=== PATIENT | female | born 1985 | race Caucasian/White ===

== ENCOUNTER 2019-02-10 19:50 | Emergency (ER) | payer SELFPAY | END 2019-02-10 21:09 | disposition home or self-care (01) | LOC: ERS 19:50 | DX: B02.9 Zoster without complications (principal); F17.210 Nicotine dependence, cigarettes, uncomplicated ==

== ENCOUNTER 2020-05-07 09:34 | Emergency (ER) | payer SELFPAY | END 2020-05-07 10:05 | disposition home or self-care (01) | LOC: ERS 09:34 | DX: N64.4 Mastodynia (principal); F17.210 Nicotine dependence, cigarettes, uncomplicated | CPT/HCPCS: 99283 ==

== ENCOUNTER 2020-05-09 08:15 | Inpatient (IN) | payer OTHER, SELFPAY ==
[2020-05-09] MEDS ORDERED: Ketorolac Tromethamine 30 MG/ML VIAL ONE (08:58)
[2020-05-09] MEDS ORDERED: VANCOMYCIN 2 GRAM/400 ML BAG 2 GM in Premix Bag 1 BAG IVPB SCH (09:15)
[2020-05-09 09:36] LABS: #Basophils 0.1 thou/uL (0.0-0.2); #Eosinphils 0.1 thou/uL (0.0-0.7); #Lymphocytes 1.6 thou/uL (1.20-3.40); #Monocytes 1.3 thou/uL (0.11-0.59); #Neutrophils 9.7 thou/uL (1.40-6.50); %Basophils 0.5 % (0.0-1.0); %Lymphocytes 12.5 % (21.0-51.0); %Monocytes 10.2 % (0.0-10.0); %Neutrophils 75.9 % (42.0-75.0); Mean Corpuscular Hemoglobin 29.8 pg (27.0-31.0); Mean Corpuscular Volume 87.7 fL (78.0-98.0); Mean Platelet Volume 7.6 fL (7.4-10.4); Platelet Count 316 thou/uL (130-400); RBC Distribution Width 10.9 % (11.5-14.5); Red Blood Cell (RBC) Count 4.37 mill/uL (4.20-5.40); White Blood Cell (WBC) Count 12.8 thou/uL (4.8-10.8)
[2020-05-09 09:43] LABS: BHCG - Serum Negative (NEGATIVE); Pregs Control Background? CLEAR/WHITE (CLR/WHITE); Pregs Control Bar Appear? YES (CONTROL BAR)
[2020-05-09 09:51] LABS: ALT (SGPT) 41 U/L (8-55); AST (SGOT) 22 U/L (5-34); Albumin 3.8 g/dL (3.5-5.0); Alkaline Phosphatase 73 U/L (40-110); Anion Gap 14 mmol/L (10-20); BUN (Urea Nitrogen) 9 mg/dL (7.0-18.7); Bilirubin, Total 0.8 mg/dL (0.2-1.2); Calc. Creatinine Clearance 0 mL/min (70-130); Calcium 8.7 mg/dL (7.8-10.44); Carbon Dioxide 24 mmol/L (22-29); Chloride 103 mmol/L (98-107); Globulin 3.4 g/dL (2.4-3.5); Glucose 93 mg/dL (70-105); Potassium 3.7 mmol/L (3.5-5.1); Protein, Total 7.2 g/dL (6.0-8.3); Sodium 137 mmol/L (136-145)
[2020-05-09] MEDS ORDERED: Acetaminophen 650 MG Suppository PR PRN (11:03)
--- NOTE | 2020-05-09 11:13 | PDOC.HHP ---
Hospitalist HPI L breast redness, dog scratch History of Present Illness: Ms. Kraus is a 34F with a past medical history of kidney stones who reports to the emergency room for left breast redness and swelling after a dog scratch. Patient reports that last week her dog scratched her breast in 2 places on the outer portion and also to the nipple. Patient reports it did break the skin, but the scratch itself healed well. A few days later she noticed redness and swelling surrounding her breast and presented to the emergency room. She was initially discharged on Bactrim and Keflex, however she had worsening fevers chills and spreading of the erythema outside the original outline. She is not lactating or breast-feeding at this time. She notes a small amount of yellow nipple discharge. No bleeding. Patient denies family history of breast cancer. In emergency room initial vital signs 119/86, 100, 16, 99.2, 97% on room air. WBC 12.8, H/H 13.0/38.3, platelets 316. Lactic acid 1.1. BUN/CR 9/0.83, sodium 137, potassium 3.7, glucose 93. Patient received vancomycin, and 1 L of normal saline. Allergies/Adverse Reactions: Allergy/AdvReac Type Severity Reaction Status Date / Time No Known Allergies Allergy Unverified 05/09/20 09:02 Comments: No home medications Past History: PMHx: Kidney stones PSHx: Renal stent FHx: Denies family history of breast cancer Social: Lives at home with family, no tobacco alcohol or drug use. Hospitalist HPI BRENT Constitutional: reports: fever, chills, malaise. denies: sweats, weakness Eyes: denies: pain, vision change, conjunctivae inflammation, eyelid inflammation, redness, other ENT: denies: ear pain, ear discharge, nose pain, nose discharge, nose congestion, mouth pain, mouth swelling, throat pain, throat swelling, other Respiratory: denies: cough, dry, shortness of breath, hemoptysis, SOB with excertion, pleuritic pain, sputum, wheezing, other Cardiovascular: denies: chest pain, palpitations, orthopnea, paroxysmal noc. dyspnea, edema, light headedness, other Gastrointestinal: denies: nausea, vomiting, abdominal pain, diarrhea, constipation, melena, hematochezia, other Genitourinary: denies: dysuria, frequency, incontinence, hematuria, retention, other Musculoskeletal: reports: other (Pain to left breast). denies: neck pain, shoulder pain, arm pain, back pain, hand pain, leg pain, foot pain Skin: reports: rash Neurological: denies: weakness, numbness, incoordination, change in speech, confusion, seizures, other Hospitalist Exam General Appearance: NAD, awake alert Eye: PERRL, anicteric sclera ENT: normocephalic atraumatic, no oropharyngeal lesions, moist mucosa Neck: supple, symmetric, no JVD, no thyromegaly, no lymphadenopathy, no carotid bruit Heart: RRR, no murmur, no gallops, no rubs, normal peripheral pulses Respiratory: CTAB, no wheezes, no rales, no ronchi, normal chest expansion, no tachypnea, normal percussion Gastrointestinal: soft, non-tender, non-distended, normal bowel sounds, no palpable masses, no hepatomegaly, no splenomegaly, no bruit Extremities: no cyanosis, no clubbing, no edema Skin - other findings: Large area of erythema, induration to left breast, no discharge Neurological: cranial nerve grossly intact, normal sensation to touch, no weakness, no focal deficits, no new deficit Musculoskeletal: normal tone, normal strength, no muscle wasting Psychiatric: normal affect, normal behavior, A&O x 3 Hospitalist Results Result Diagrams: 05/09/20 08:59 05/09/20 08:59 Lab results: Laboratory Last Values WBC 12.8 thou/uL (4.8-10.8) H 05/09/20 08:59 RBC 4.37 mill/uL (4.20-5.40) 05/09/20 08:59 Hgb 13.0 g/dL (12.0-16.0) 05/09/20 08:59 Hct 38.3 % (36.0-47.0) 05/09/20 08:59 MCV 87.7 fL (78.0-98.0) 05/09/20 08:59 MCH 29.8 pg (27.0-31.0) 05/09/20 08:59 MCHC 34.0 g/dL (32.0-36.0) 05/09/20 08:59 RDW 10.9 % (11.5-14.5) L 05/09/20 08:59 Plt Count 316 thou/uL (130-400) 05/09/20 08:59 MPV 7.6 fL (7.4-10.4) 05/09/20 08:59 Neutrophils % 75.9 % (42.0-75.0) H 05/09/20 08:59 Lymphocytes % 12.5 % (21.0-51.0) L 05/09/20 08:59 Monocytes % 10.2 % (0.0-10.0) H 05/09/20 08:59 Eosinophils % 1.0 % (0.0-10.0) 05/09/20 08:59 Basophils % 0.5 % (0.0-1.0) 05/09/20 08:59 Neutrophils # 9.7 thou/uL (1.40-6.50) H 05/09/20 08:59 Lymphocytes # 1.6 thou/uL (1.20-3.40) 05/09/20 08:59 Monocytes # 1.3 thou/uL (0.11-0.59) H 05/09/20 08:59 Eosinophils # 0.1 thou/uL (0.0-0.7) 05/09/20 08:59 Basophils # 0.1 thou/uL (0.0-0.2) 05/09/20 08:59 Sodium 137 mmol/L (136-145) 05/09/20 08:59 Potassium 3.7 mmol/L (3.5-5.1) 05/09/20 08:59 Chloride 103 mmol/L (98-107) 05/09/20 08:59 Carbon Dioxide 24 mmol/L (22-29) 05/09/20 08:59 Anion Gap 14 mmol/L (10-20) 05/09/20 08:59 BUN 9 mg/dL (7.0-18.7) 05/09/20 08:59 Creatinine 0.83 mg/dL (0.6-1.1) 05/09/20 08:59 Estimated GFR (MDRD) 78 05/09/20 08:59 Glucose 93 mg/dL (70-105) 05/09/20 08:59 Lactic Acid 1.1 mmol/L (0.5-2.2) 05/09/20 08:59 Calcium 8.7 mg/dL (7.8-10.44) 05/09/20 08:59 Total Bilirubin 0.8 mg/dL (0.2-1.2) 05/09/20 08:59 AST 22 U/L (5-34) 05/09/20 08:59 ALT 41 U/L (8-55) 05/09/20 08:59 Alkaline Phosphatase 73 U/L (40-110) 05/09/20 08:59 Serum Total Protein 7.2 g/dL (6.0-8.3) 05/09/20 08:59 Albumin 3.8 g/dL (3.5-5.0) 05/09/20 08:59 Globulin 3.4 g/dL (2.4-3.5) 05/09/20 08:59 Albumin/Globulin Ratio 1.1 g/dL (1.2-2.2) L 05/09/20 08:59 Serum , Qual Negative (NEGATIVE) 05/09/20 08:59 Hospitalist H&P A/P Plan: Left breast cellulitis 34-year-old female with minimal past medical history presents with significant left breast cellulitis after a dog scratch who has failed outpatient antibiotics. Patient initially started on Bactrim and Keflex but developed worsening erythema, fever chills sweats and represented to emergency room. Patient found to be in mild sepsis on presentation with mild tachycardia, elevated white blood cell count. Received 1 dose of vancomycin in emergency room. Will start patient on IV Unasyn given scratch. Plan IV Unasyn q6h Marked outline Trend WBC, fever curve Sepsis without septic shock Patient in sepsis without septic shock secondary to left breast cellulitis. Meeting SIRS criteria with tachycardia, respirations of 20 and elevated white blood cell count to 12.8. Lactic acid 1.1. Patient receiving vancomycin and IV fluids in emergency room. Will transition antibiotics to Unasyn given source, follow cultures and treatment as above. Plan IV antibiotics IV fluids Trend WBC, fever curve, lactic acid Follow blood cultures DVT prophylaxisLovenox Full code Case discussed with attending physician, Dr. Jacobo.
[2020-05-09] MEDS ORDERED: diphenhydrAMINE 50 MG/ML VIAL ONE (11:44)
[2020-05-09] MEDS: Sodium Chloride 0.9% 1,000 ML IV SCH ×2 (13:12→17:50)
[2020-05-09 13:30] VITALS: BMI 34.3
[2020-05-09] MEDS: Ampicillin/Sulbactam 3 GM in Sodium Chloride 0.9% 100 ML IVPB SCH ×2 (14:45→17:50)
[2020-05-09] MEDS: Acetaminophen 325 MG TAB PO PRN (16:46)
[2020-05-09] MEDS ORDERED: Ibuprofen 800 MG TAB PO PRN (17:24)
[2020-05-09] MEDS: Ketorolac Tromethamine 30 MG/ML VIAL IVP PRN (21:03)
[2020-05-10] MEDS: Ampicillin/Sulbactam 3 GM in Sodium Chloride 0.9% 100 ML IVPB SCH ×5 (00:58→23:19)
[2020-05-10] MEDS ORDERED: VANCOMYCIN 1.25 GM/250 ML BAG 1.25 GM in Premix Bag 1 BAG IVPB SCH (01:00)
[2020-05-10] MEDS: Acetaminophen 325 MG TAB PO PRN ×2 (05:23→15:39)
[2020-05-10] MEDS: Sodium Chloride 0.9% 1,000 ML IV SCH ×3 (05:23→18:20)
[2020-05-10 06:01] LABS: SARS-CoV-2 PCR by NAA Not Detected (NotDetected)
[2020-05-10 06:04] LABS: #Eosinphils 0.4 thou/uL (0.0-0.7); #Lymphocytes 1.3 thou/uL (1.20-3.40); #Monocytes 0.9 thou/uL (0.11-0.59); #Neutrophils 7.8 thou/uL (1.40-6.50); %Basophils 0.2 % (0.0-1.0); %Eosinophils 3.8 % (0.0-10.0); %Lymphocytes 12.7 % (21.0-51.0); %Monocytes 8.3 % (0.0-10.0); %Neutrophils 75.1 % (42.0-75.0); Hemoglobin 10.9 g/dL (12.0-16.0); Mean Corpuscular HGB CONC 31.9 g/dL (32.0-36.0); Mean Corpuscular Hemoglobin 27.7 pg (27.0-31.0); Mean Corpuscular Volume 86.8 fL (78.0-98.0); Mean Platelet Volume 7.4 fL (7.4-10.4); Platelet Count 324 thou/uL (130-400); RBC Distribution Width 11.1 % (11.5-14.5); Red Blood Cell (RBC) Count 3.93 mill/uL (4.20-5.40); White Blood Cell (WBC) Count 10.4 thou/uL (4.8-10.8)
[2020-05-10 06:23] LABS: Anion Gap 13 mmol/L (10-20); BUN (Urea Nitrogen) 7 mg/dL (7.0-18.7); Calc. Creatinine Clearance 152 mL/min (70-130); Calcium 7.9 mg/dL (7.8-10.44); Carbon Dioxide 20 mmol/L (22-29); Chloride 109 mmol/L (98-107); Glucose 102 mg/dL (70-105); Potassium 3.8 mmol/L (3.5-5.1); Sodium 138 mmol/L (136-145)
[2020-05-10] MEDS: Enoxaparin Sodium 40 MG/0.4 ML SYRINGE SC SCH (09:06)
[2020-05-10] MEDS ORDERED: Morphine 2 MG/ML VIAL SLOW IVP SCH (10:54)
--- NOTE | 2020-05-10 11:03 | PDOC.HOSPP ---
- Subjective Encounter Date: 05/10/20 Encounter Time: 11:00 Subjective: Patient reports she has had fever, chills and sweats. Area of cellulitiis improving in upper pole of breast, but slightly extending past outline interiorly. Patient had allergic reaction to vancomycin with itching and a rash. Rate was slowed, but still persisted. Vancomycin d/c. Patient denies chest pain, SOB, abdominal pain. Reports her pain is moderately controlled, but severe at times. Chart and medications reviewed. - Objective Vital Signs & Weight: Vital Signs (12 hours) Temp Pulse Resp BP BP Pulse Ox 05/10/20 08:00 97 05/10/20 07:22 98.0 F 74 16 101/67 97 05/10/20 05:45 99.2 F 05/10/20 05:23 100.6 F H 05/10/20 05:10 100.6 F H 05/10/20 04:00 99.8 F H 72 100/62 96 05/09/20 23:11 97.2 F L 74 18 95/60 97 Weight Weight 194 lb I&O: 05/09/20 05/10/20 05/11/20 06:59 06:59 06:59 Intake Total 1730 Balance 1730 Result Diagrams: 05/10/20 05:49 05/10/20 05:49 Hospitalist ROS - Review of Systems Constitutional: reports: fever, chills, sweats. denies: weakness, malaise, other Eyes: denies: pain, vision change, conjunctivae inflammation, eyelid inflammation, redness, other ENT: denies: ear pain, ear discharge, nose pain, nose discharge, nose conge stion, mouth pain, mouth swelling, throat pain, throat swelling, other Respiratory: denies: cough, dry, shortness of breath, hemoptysis, SOB with excertion, pleuritic pain, sputum, wheezing, other Cardiovascular: denies: chest pain, palpitations, orthopnea, paroxysmal noc. dyspnea, edema, light headedness, other Gastrointestinal: denies: nausea, vomiting, abdominal pain, diarrhea, constipation, melena, hematochezia, other Genitourinary: denies: dysuria, frequency, incontinence, hematuria, retention, other Musculoskeletal: denies: neck pain, shoulder pain, arm pain, back pain, hand pain, leg pain, foot pain, other Skin: reports: rash. denies: lesions, liliana, bruising, other Neurological: denies: weakness, numbness, incoordination, change in speech, confusion, seizures, other - Medication Medications: Active Medications Generic Name Dose Route Start Last Admin Trade Name Freq PRN Reason Stop Dose Admin Acetaminophen 650 mg 05/09/20 11:03 05/10/20 05:23 Acetaminophen 325 Mg Tab PO 650 mg Q4H PRN Administration Headache/Fever/Mild Pain (1-3) Enoxaparin Sodium 40 mg 05/10/20 09:00 05/10/20 09:06 Enoxaparin Sodium 40 Mg/0.4 Ml Syringe SC 40 mg 0900 DAVID Administration Ampicillin Sodium/Sulbactam 100 mls @ 200 mls/hr 05/09/20 12:00 05/10/20 05:43 Sodium 3 gm/ Sodium Chloride IVPB 100 mls Q6HR DAVID Administration Sodium Chloride 1,000 mls @ 125 mls/hr 05/09/20 11:15 05/10/20 05:23 Normal Saline 0.9% IV 1,000 mls .Q8H DAVID Administration Ketorolac Tromethamine 15 mg 05/09/20 20:49 05/09/20 21:03 Ketorolac Tromethamine 30 Mg/Ml Vial IVP 05/14/20 20:50 15 mg Q6H PRN Administration Pain Hospitalist Exam Vitals: Vital Signs (12 hours) Temp Pulse Resp BP BP Pulse Ox 05/10/20 08:00 97 05/10/20 07:22 98.0 F 74 16 101/67 97 05/10/20 05:45 99.2 F 05/10/20 05:23 100.6 F H 05/10/20 05:10 100.6 F H 05/10/20 04:00 99.8 F H 72 100/62 96 05/09/20 23:11 97.2 F L 74 18 95/60 97 Weight Weight 194 lb General Appearance: NAD, awake alert Eye: PERRL, anicteric sclera ENT: normocephalic atraumatic, no oropharyngeal lesions, moist mucosa Neck: supple, symmetric, no JVD, no thyromegaly, no lymphadenopathy, no carotid bruit Heart: RRR, no murmur, no gallops, no rubs, normal peripheral pulses Respiratory: CTAB, no wheezes, no rales, no ronchi, normal chest expansion, no tachypnea, normal percussion Gastrointestinal: soft, non-tender, non-distended, normal bowel sounds, no palpable masses, no hepatomegaly, no splenomegaly, no bruit Extremities: no cyanosis, no clubbing, no edema Skin - other findings: Erythema with central area of deepening, extending pass outline Neurological: cranial nerve grossly intact, normal sensation to touch, no weakness, no focal deficits, no new deficit Musculoskeletal: normal tone, normal strength, no muscle wasting Psychiatric: normal affect, normal behavior, A&O x 3 Hosp A/P - Plan Left breast cellulitis 34-year-old female with minimal past medical history presents with significant left breast cellulitis after a dog scratch who has failed outpatient antibiotics. Patient initially started on Bactrim and Keflex but developed worsening erythema, fever chills sweats and represented to emergency room. Patient found to be in mild sepsis on presentation with mild tachycardia, elevated white blood cell count. Received 1 dose of vancomycin in emergency room, however pt had allergic reaction so this was discontinued. This am, area of worsening redness near center of breast, will obtain US to assess for abscess or fluid collection. Continue IV abx. Plan IV Unasyn q6h -Allergy to vancomycin, d/c -Breast US Marked outline Trend WBC, fever curve Sepsis without septic shock Patient in sepsis without septic shock secondary to left breast cellulitis. Meeting SIRS criteria with tachycardia, respirations of 20 and elevated white blood cell count to 12.8. Lactic acid 1.1. Patient receiving vancomycin and IV fluids in emergency room. Will transition antibiotics to Unasyn given source, follow cultures and treatment as above. Improved to 10.4. Plan IV antibiotics IV fluids Trend WBC, fever curve, lactic acid BCx NGTD DVT prophylaxisLovenox Full code Case discussed with attending physician, Dr. Jacobo.
--- NOTE | 2020-05-10 11:57 | ULT ---
Exam: Right breast ultrasound HISTORY: Evaluate for abscess versus cellulitis Comparison none FINDINGS: Targeted sonographic imaging of the remainder concern was performed the left breast. After receiving static images, real-time imaging was also performed in the presence of the radiologist FINDINGS: Static and real-time images demonstrate extensive edema involving the left breast, the steve on of concern. No evidence of an abscess IMPRESSION: Left breast mastitis.
[2020-05-10] MEDS: Ketorolac Tromethamine 30 MG/ML VIAL IVP PRN ×2 (15:37→20:44)
[2020-05-11] MEDS: Acetaminophen 325 MG TAB PO PRN (03:35)
[2020-05-11] MEDS: Sodium Chloride 0.9% 1,000 ML IV SCH ×3 (03:36→20:40)
[2020-05-11] MEDS: Ampicillin/Sulbactam 3 GM in Sodium Chloride 0.9% 100 ML IVPB SCH ×3 (05:20→18:12)
[2020-05-11 06:27] LABS: #Eosinphils 0.3 thou/uL (0.0-0.7); #Lymphocytes 1.7 thou/uL (1.20-3.40); #Neutrophils 7.8 thou/uL (1.40-6.50); %Basophils 0.3 % (0.0-1.0); %Eosinophils 2.4 % (0.0-10.0); %Lymphocytes 16.2 % (21.0-51.0); %Monocytes 9.2 % (0.0-10.0); Hemoglobin 10.1 g/dL (12.0-16.0); Mean Corpuscular HGB CONC 33.5 g/dL (32.0-36.0); Mean Corpuscular Hemoglobin 29.3 pg (27.0-31.0); Mean Corpuscular Volume 87.4 fL (78.0-98.0); Mean Platelet Volume 7.4 fL (7.4-10.4); Platelet Count 328 thou/uL (130-400); RBC Distribution Width 10.8 % (11.5-14.5); Red Blood Cell (RBC) Count 3.46 mill/uL (4.20-5.40); White Blood Cell (WBC) Count 10.8 thou/uL (4.8-10.8)
[2020-05-11 06:51] LABS: Anion Gap 10 mmol/L (10-20); BUN (Urea Nitrogen) 6 mg/dL (7.0-18.7); Calc. Creatinine Clearance 152 mL/min (70-130); Calcium 7.9 mg/dL (7.8-10.44); Carbon Dioxide 26 mmol/L (22-29); Chloride 108 mmol/L (98-107); Glucose 100 mg/dL (70-105); Potassium 3.6 mmol/L (3.5-5.1); Sodium 140 mmol/L (136-145)
[2020-05-11] MEDS: Enoxaparin Sodium 40 MG/0.4 ML SYRINGE SC SCH (08:11)
--- NOTE | 2020-05-11 09:37 | PDOC.HOSPP ---
- Subjective Encounter Date: 05/11/20 Encounter Time: 09:30 Subjective: no fever, chills. decreased tenderness L breast - Objective Vital Signs & Weight: Vital Signs (12 hours) Temp Pulse Resp BP Pulse Ox 05/11/20 07:46 98.7 F 79 16 113/73 98 05/11/20 04:55 98.5 F 05/11/20 04:05 98.4 F 05/11/20 03:35 100 F H 05/11/20 00:00 98.2 F Weight Weight 194 lb I&O: 05/10/20 05/11/20 05/12/20 06:59 06:59 06:59 Intake Total 1730 1999 Balance 1730 1999 Result Diagrams: 05/11/20 05:34 05/11/20 05:34 Hospitalist ROS - Medication Medications: Active Medications Generic Name Dose Route Start Last Admin Trade Name Freq PRN Reason Stop Dose Admin Acetaminophen 650 mg 05/09/20 11:03 05/11/20 03:35 Acetaminophen 325 Mg Tab PO 650 mg Q4H PRN Administration Headache/Fever/Mild Pain (1-3) Enoxaparin Sodium 40 mg 05/10/20 09:00 05/11/20 08:11 Enoxaparin Sodium 40 Mg/0.4 Ml Syringe SC 40 mg 0900 DAVID Administration Ampicillin Sodium/Sulbactam 100 mls @ 200 mls/hr 05/09/20 12:00 05/11/20 05:20 Sodium 3 gm/ Sodium Chloride IVPB 100 mls Q6HR DAVID Administration Sodium Chloride 1,000 mls @ 125 mls/hr 05/09/20 11:15 05/11/20 03:36 Normal Saline 0.9% IV 1,000 mls .Q8H DAVID Administration Ketorolac Tromethamine 15 mg 05/09/20 20:49 05/10/20 20:44 Ketorolac Tromethamine 30 Mg/Ml Vial IVP 05/14/20 20:50 15 mg Q6H PRN Administration Pain Hospitalist Exam Vitals: Vital Signs (12 hours) Temp Pulse Resp BP Pulse Ox 05/11/20 07:46 98.7 F 79 16 113/73 98 05/11/20 04:55 98.5 F 05/11/20 04:05 98.4 F 05/11/20 03:35 100 F H 05/11/20 00:00 98.2 F Weight Weight 194 lb General Appearance: awake alert Neck: no JVD Heart: RRR, no murmur Respiratory: CTAB Gastrointestinal: soft, normal bowel sounds Extremities: no edema Skin - other findings: L breast approximately 9 in in diameter. erythema over 80 % of breast, indud Hosp A/P (1) Cellulitis of left breast Code(s): N61.0 - MASTITIS WITHOUT ABSCESS Status: Acute (2) Dog scratch Code(s): W54.8XXA - OTHER CONTACT WITH DOG, INITIAL ENCOUNTER Status: Acute - Plan cultures neg WBC count normalized cont ampicillin/sulbatam iv
[2020-05-12] MEDS: Sodium Chloride 0.9% 1,000 ML IV SCH ×3 (00:07→18:20)
[2020-05-12] MEDS: Ampicillin/Sulbactam 3 GM in Sodium Chloride 0.9% 100 ML IVPB SCH ×2 (00:07→05:51)
[2020-05-12 06:18] LABS: #Basophils 0.1 thou/uL (0.0-0.2); #Eosinphils 0.3 thou/uL (0.0-0.7); #Lymphocytes 1.8 thou/uL (1.20-3.40); #Neutrophils 8.2 thou/uL (1.40-6.50); %Basophils 0.6 % (0.0-1.0); %Eosinophils 2.6 % (0.0-10.0); %Monocytes 8.5 % (0.0-10.0); %Neutrophils 72.4 % (42.0-75.0); Hemoglobin 10.6 g/dL (12.0-16.0); Mean Corpuscular HGB CONC 35.3 g/dL (32.0-36.0); Mean Corpuscular Volume 87.7 fL (78.0-98.0); Mean Platelet Volume 6.9 fL (7.4-10.4); Platelet Count 340 thou/uL (130-400); RBC Distribution Width 11.1 % (11.5-14.5); Red Blood Cell (RBC) Count 3.42 mill/uL (4.20-5.40); White Blood Cell (WBC) Count 11.3 thou/uL (4.8-10.8)
[2020-05-12 06:39] LABS: Anion Gap 12 mmol/L (10-20); BUN (Urea Nitrogen) 4 mg/dL (7.0-18.7); Calc. Creatinine Clearance 150 mL/min (70-130); Calcium 8.2 mg/dL (7.8-10.44); Carbon Dioxide 27 mmol/L (22-29); Chloride 105 mmol/L (98-107); Glucose 92 mg/dL (70-105); Potassium 3.7 mmol/L (3.5-5.1); Sodium 140 mmol/L (136-145)
[2020-05-12] MEDS: Enoxaparin Sodium 40 MG/0.4 ML SYRINGE SC SCH (09:03)
--- NOTE | 2020-05-12 10:34 | PDOC.HOSPP ---
- Subjective Encounter Date: 05/12/20 Encounter Time: 10:32 Subjective: no fever chills - Objective Vital Signs & Weight: Vital Signs (12 hours) Temp Pulse Resp BP Pulse Ox 05/12/20 08:00 98 05/12/20 07:03 98.3 F 87 17 119/79 98 05/12/20 05:53 98.6 F 05/12/20 00:14 98 05/12/20 00:00 98.2 F Weight Weight 194 lb I&O: 05/11/20 05/12/20 05/13/20 06:59 06:59 06:59 Intake Total 1999 1800 Balance 1999 1800 Result Diagrams: 05/12/20 05:50 05/12/20 05:50 Hospitalist ROS - Medication Medications: Active Medications Generic Name Dose Route Start Last Admin Trade Name Freq PRN Reason Stop Dose Admin Acetaminophen 650 mg 05/09/20 11:03 05/11/20 03:35 Acetaminophen 325 Mg Tab PO 650 mg Q4H PRN Administration Headache/Fever/Mild Pain (1-3) Enoxaparin Sodium 40 mg 05/10/20 09:00 05/12/20 09:03 Enoxaparin Sodium 40 Mg/0.4 Ml Syringe SC 40 mg 0900 DAVID Administration Sodium Chloride 1,000 mls @ 125 mls/hr 05/09/20 11:15 05/12/20 00:07 Normal Saline 0.9% IV 1,000 mls .Q8H DAVID Administration Ketorolac Tromethamine 15 mg 05/09/20 20:49 05/10/20 20:44 Ketorolac Tromethamine 30 Mg/Ml Vial IVP 05/14/20 20:50 15 mg Q6H PRN Administration Pain Hospitalist Exam Vitals: Vital Signs (12 hours) Temp Pulse Resp BP Pulse Ox 05/12/20 08:00 98 05/12/20 07:03 98.3 F 87 17 119/79 98 05/12/20 05:53 98.6 F 05/12/20 00:14 98 05/12/20 00:00 98.2 F Weight Weight 194 lb Neck: no JVD Heart: RRR, no murmur Respiratory: CTAB Gastrointestinal: soft, normal bowel sounds Extremities: no edema Skin - other findings: slow progress with decreased erythema, induration on breast Hosp A/P (1) Cellulitis of left breast Code(s): N61.0 - MASTITIS WITHOUT ABSCESS Status: Acute (2) Dog scratch Code(s): W54.8XXA - OTHER CONTACT WITH DOG, INITIAL ENCOUNTER Status: Acute - Plan cultures neg WBC 11,000 switch to rocephin 2 gms daily
[2020-05-12] MEDS: cefTRIAXone\\ROCEPHIN 2 GM in Sodium Chloride 0.9% 100 ML IVPB SCH (11:15)
[2020-05-12] MEDS: Acetaminophen 325 MG TAB PO PRN (21:06)
[2020-05-13] MEDS: Sodium Chloride 0.9% 1,000 ML IV SCH (02:34)
[2020-05-13 05:52] LABS: #Basophils 0.1 thou/uL (0.0-0.2); #Eosinphils 0.3 thou/uL (0.0-0.7); #Lymphocytes 1.9 thou/uL (1.20-3.40); #Monocytes 1.1 thou/uL (0.11-0.59); #Neutrophils 9.7 thou/uL (1.40-6.50); %Basophils 0.6 % (0.0-1.0); %Eosinophils 2.3 % (0.0-10.0); %Lymphocytes 14.5 % (21.0-51.0); %Monocytes 8.6 % (0.0-10.0); Hemoglobin 10.9 g/dL (12.0-16.0); Mean Corpuscular HGB CONC 33.3 g/dL (32.0-36.0); Mean Corpuscular Hemoglobin 29.2 pg (27.0-31.0); Mean Corpuscular Volume 87.7 fL (78.0-98.0); Platelet Count 372 thou/uL (130-400); RBC Distribution Width 11.1 % (11.5-14.5); Red Blood Cell (RBC) Count 3.72 mill/uL (4.20-5.40)
[2020-05-13 06:08] LABS: Anion Gap 10 mmol/L (10-20); BUN (Urea Nitrogen) 7 mg/dL (7.0-18.7); Calc. Creatinine Clearance 146 mL/min (70-130); Calcium 8.3 mg/dL (7.8-10.44); Carbon Dioxide 28 mmol/L (22-29); Chloride 105 mmol/L (98-107); Glucose 97 mg/dL (70-105); Potassium 3.7 mmol/L (3.5-5.1); Sodium 139 mmol/L (136-145)
[2020-05-13] MEDS: Enoxaparin Sodium 40 MG/0.4 ML SYRINGE SC SCH (07:36)
[2020-05-13] MEDS: cefTRIAXone\\ROCEPHIN 2 GM in Sodium Chloride 0.9% 100 ML IVPB SCH (10:14)
[2020-05-13] MEDS: metroNIDAZOLE 500 MG in Premix Bag 1 BAG IVPB SCH ×2 (12:52→22:01)
--- NOTE | 2020-05-13 14:58 | PDOC.HOSPP ---
- Subjective Encounter Date: 05/13/20 Encounter Time: 14:50 Subjective: This is a 34-year-old female who suffered a scratch on her left breast by her dog. This area unfortunately got cellulitic prompting her to present to her doctor and was prescribed a course of oral antibiotics. She did not improve at all and she eventually decided to present to the hospital where she was diagnosed with cellulitis of the left breast. There was no abscess on the sonogram and a CT scan. She seems to be tolerating her antibiotics well. She was asking about going home but currently she is now quite medically stable. We will continue current antibiotic treatment. - Objective Vital Signs & Weight: Vital Signs (12 hours) Temp Pulse Resp BP Pulse Ox 05/13/20 12:27 98 F 104/70 05/13/20 08:16 98 05/13/20 07:11 98.3 F 72 16 112/73 98 Weight Weight 194 lb I&O: 05/12/20 05/13/20 05/14/20 06:59 06:59 06:59 Intake Total 1800 Balance 1800 Result Diagrams: 05/13/20 05:05 05/13/20 05:05 Radiology Reviewed by me: Yes EKG Reviewed by me: Yes Hospitalist ROS - Review of Systems Constitutional: reports: weakness Gastrointestinal: reports: nausea Skin: reports: rash - Medication Medications: Active Medications Generic Name Dose Route Start Last Admin Trade Name Freq PRN Reason Stop Dose Admin Acetaminophen 650 mg 05/09/20 11:03 05/12/20 21:06 Acetaminophen 325 Mg Tab PO 650 mg Q4H PRN Administration Headache/Fever/Mild Pain (1-3) Enoxaparin Sodium 40 mg 05/10/20 09:00 05/13/20 07:36 Enoxaparin Sodium 40 Mg/0.4 Ml Syringe SC 40 mg 0900 DAVID Administration Ceftriaxone Sodium 2 gm/ 100 mls @ 200 mls/hr 05/12/20 11:00 05/13/20 10:14 Sodium Chloride IVPB 100 mls Q24HR DAVID Administration Metronidazole 500 mg/ Device 100 mls @ 100 mls/hr 05/13/20 14:00 05/13/20 12:52 IVPB 100 mls Q8HR DAVID Administration Ketorolac Tromethamine 15 mg 05/09/20 20:49 05/10/20 20:44 Ketorolac Tromethamine 30 Mg/Ml Vial IVP 05/14/20 20:50 15 mg Q6H PRN Administration Pain Hospitalist Exam Vitals: Vital Signs (12 hours) Temp Pulse Resp BP Pulse Ox 05/13/20 12:27 98 F 104/70 05/13/20 08:16 98 05/13/20 07:11 98.3 F 72 16 112/73 98 Weight Weight 194 lb General Appearance: NAD, awake alert Eye: PERRL, anicteric sclera ENT: normocephalic atraumatic, no oropharyngeal lesions Neck: supple, symmetric, no JVD, no thyromegaly Heart: RRR, no murmur, no gallops, no rubs Respiratory: CTAB, no wheezes, no rales, no ronchi, normal chest expansion Gastrointestinal: soft, non-tender, non-distended, normal bowel sounds Neurological: cranial nerve grossly intact Psychiatric: normal affect, normal behavior, A&O x 3 Hosp A/P (1) Acute mastitis of left breast Code(s): N61.0 - MASTITIS WITHOUT ABSCESS Status: Acute (2) Cellulitis of left breast Code(s): N61.0 - MASTITIS WITHOUT ABSCESS Status: Acute (3) Dog scratch Code(s): W54.8XXA - OTHER CONTACT WITH DOG, INITIAL ENCOUNTER Status: Acute - Plan old records reviewed/req, continue antibiotics She will continue antibiotics for now.
[2020-05-14] MEDS: metroNIDAZOLE 500 MG in Premix Bag 1 BAG IVPB SCH ×3 (05:11→21:24)
[2020-05-14 05:39] LABS: #Basophils 0.1 thou/uL (0.0-0.2); #Eosinphils 0.5 thou/uL (0.0-0.7); #Lymphocytes 2.2 thou/uL (1.20-3.40); #Neutrophils 8.9 thou/uL (1.40-6.50); %Basophils 0.6 % (0.0-1.0); %Eosinophils 4.2 % (0.0-10.0); %Lymphocytes 17.1 % (21.0-51.0); %Monocytes 7.8 % (0.0-10.0); %Neutrophils 70.4 % (42.0-75.0); Hemoglobin 11.5 g/dL (12.0-16.0); Mean Corpuscular Hemoglobin 29.2 pg (27.0-31.0); Mean Corpuscular Volume 85.9 fL (78.0-98.0); Mean Platelet Volume 6.7 fL (7.4-10.4); Platelet Count 408 thou/uL (130-400); Red Blood Cell (RBC) Count 3.92 mill/uL (4.20-5.40); White Blood Cell (WBC) Count 12.7 thou/uL (4.8-10.8)
[2020-05-14 05:58] LABS: Anion Gap 14 mmol/L (10-20); BUN (Urea Nitrogen) 8 mg/dL (7.0-18.7); Calc. Creatinine Clearance 151 mL/min (70-130); Calcium 8.5 mg/dL (7.8-10.44); Carbon Dioxide 25 mmol/L (22-29); Chloride 104 mmol/L (98-107); Glucose 95 mg/dL (70-105); Potassium 3.8 mmol/L (3.5-5.1); Sodium 139 mmol/L (136-145)
[2020-05-14] MEDS: Enoxaparin Sodium 40 MG/0.4 ML SYRINGE SC SCH (08:46)
[2020-05-14] MEDS: cefTRIAXone\\ROCEPHIN 2 GM in Sodium Chloride 0.9% 100 ML IVPB SCH (10:55)
--- NOTE | 2020-05-14 14:13 | PDOC.HOSPP ---
- Subjective Encounter Date: 05/14/20 Encounter Time: 14:10 Subjective: This patient is seen and evaluated. She is a 35-year-old admitted to the hospital for left breast mastitis that has been on antibiotics. She appears to be doing okay but I decided to consult general surgery due to concern for other potential etiologies. There is ongoing plan to do a breast biopsy and this will be done tomorrow. We will continue with antibiotics. - Objective Vital Signs & Weight: Vital Signs (12 hours) Temp Pulse Resp BP Pulse Ox 05/14/20 08:00 98.5 F 96 05/14/20 07:38 98.5 F 76 20 127/75 96 05/14/20 04:00 98.8 F 86 18 119/79 Weight Weight 194 lb I&O: 05/13/20 05/14/20 05/15/20 06:59 06:59 06:59 Intake Total 2575 480 Balance 2575 480 Result Diagrams: 05/14/20 05:13 05/14/20 05:13 Radiology Reviewed by me: Yes EKG Reviewed by me: Yes Hospitalist ROS - Review of Systems Skin: reports: rash - Medication Medications: Active Medications Generic Name Dose Route Start Last Admin Trade Name Freq PRN Reason Stop Dose Admin Acetaminophen 650 mg 05/09/20 11:03 05/12/20 21:06 Acetaminophen 325 Mg Tab PO 650 mg Q4H PRN Administration Headache/Fever/Mild Pain (1-3) Ceftriaxone Sodium 2 gm/ 100 mls @ 200 mls/hr 05/12/20 11:00 05/14/20 10:55 Sodium Chloride IVPB 100 mls Q24HR DAVID Administration Metronidazole 500 mg/ Device 100 mls @ 100 mls/hr 05/13/20 14:00 05/14/20 13:48 IVPB 100 mls Q8HR DAVID Administration Ketorolac Tromethamine 15 mg 05/09/20 20:49 05/10/20 20:44 Ketorolac Tromethamine 30 Mg/Ml Vial IVP 05/14/20 20:50 15 mg Q6H PRN Administration Pain Hospitalist Exam Vitals: Vital Signs (12 hours) Temp Pulse Resp BP Pulse Ox 05/14/20 08:00 98.5 F 96 05/14/20 07:38 98.5 F 76 20 127/75 96 05/14/20 04:00 98.8 F 86 18 119/79 Weight Weight 194 lb General Appearance: NAD, awake alert Eye: PERRL, anicteric sclera ENT: normocephalic atraumatic, no oropharyngeal lesions Neck: supple, symmetric, no JVD, no thyromegaly Heart: RRR, no murmur, no gallops, no rubs, normal peripheral pulses Respiratory: CTAB, no wheezes, no rales, no ronchi, normal chest expansion Gastrointestinal: soft, non-tender, non-distended, normal bowel sounds Neurological: cranial nerve grossly intact Psychiatric: normal affect, normal behavior, A&O x 3 Hosp A/P (1) Acute mastitis of left breast Code(s): N61.0 - MASTITIS WITHOUT ABSCESS Status: Acute Plan: The patient with left breast tenderness and erythema concerning for mastitis. She is tolerating antibiotics which we will continue for now. I consulted general surgery and the plan on doing a biopsy tomorrow. We will continue current management plan. (2) Cellulitis of left breast Code(s): N61.0 - MASTITIS WITHOUT ABSCESS Status: Acute (3) Dog scratch Code(s): W54.8XXA - OTHER CONTACT WITH DOG, INITIAL ENCOUNTER Status: Acute - Plan She will continue antibiotics for now.
--- NOTE | 2020-05-14 14:17 | CON ---
DATE OF CONSULTATION: 05/14/2020 CHIEF COMPLAINT: Left breast cellulitis and mass. HISTORY OF PRESENT ILLNESS: The patient is a 35-year-old female with a 2-week history of a dog scratch on her left breast. She came to the hospital about a week ago with fever, aches, pain, and was treated with antibiotics. She is feeling better now, but has a persistent erythematous and swollen left breast. She has never had a mammogram. She does have a family history of breast cancer in a paternal grandfather. PAST MEDICAL HISTORY: Obesity. PAST SURGICAL HISTORY: She has had right kidney surgery. MEDICATIONS: She is on no medications. ALLERGIES: VANCOMYCIN. SOCIAL HISTORY: She is . 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 PHYSICAL EXAMINATION: VITAL SIGNS: Temperature 98.5, pulse 96, blood pressure 127/75. GENERAL: Obese female, in no apparent distress. HEENT: Unremarkable. LUNGS: Clear. HEART: Regular rate and rhythm. BREASTS: Her left breast is noticeably larger than the right, but she says they have always been that way. The left breast has had about a 10 cm area of induration in the upper inner quadrant. There is minimal tenderness. No palpable lymph nodes. No drainage. LABORATORY DATA: Her white count is 12.7, hemoglobin and hematocrit 11 and 33, platelet count 408. Blood cultures are negative. IMAGING STUDIES: Ultrasound shows edema, but no abscess. ASSESSMENT: Persistent left breast cellulitis. PLAN: Incisional biopsy. We will try and remove some of the skin, some of the deep indurated tissue, and if I get into abscess, we will leave it open. Job ID: [id number]
[2020-05-15 05:31] LABS: #Basophils 0.1 thou/uL (0.0-0.2); #Eosinphils 0.3 thou/uL (0.0-0.7); #Monocytes 0.9 thou/uL (0.11-0.59); #Neutrophils 11.2 thou/uL (1.40-6.50); %Basophils 0.5 % (0.0-1.0); %Eosinophils 2.3 % (0.0-10.0); %Lymphocytes 13.7 % (21.0-51.0); %Monocytes 6.4 % (0.0-10.0); Hemoglobin 12.4 g/dL (12.0-16.0); Mean Corpuscular HGB CONC 33.5 g/dL (32.0-36.0); Mean Corpuscular Hemoglobin 28.8 pg (27.0-31.0); Mean Corpuscular Volume 85.8 fL (78.0-98.0); Mean Platelet Volume 6.4 fL (7.4-10.4); Platelet Count 463 thou/uL (130-400); RBC Distribution Width 11.3 % (11.5-14.5); Red Blood Cell (RBC) Count 4.32 mill/uL (4.20-5.40); White Blood Cell (WBC) Count 14.6 thou/uL (4.8-10.8)
[2020-05-15 05:40] LABS: Anion Gap 14 mmol/L (10-20); BUN (Urea Nitrogen) 8 mg/dL (7.0-18.7); Calc. Creatinine Clearance 141 mL/min (70-130); Calcium 8.7 mg/dL (7.8-10.44); Carbon Dioxide 25 mmol/L (22-29); Chloride 103 mmol/L (98-107); Glucose 97 mg/dL (70-105); Potassium 3.7 mmol/L (3.5-5.1); Sodium 138 mmol/L (136-145)
[2020-05-15] MEDS ORDERED: Fentanyl 100 MCG/2 ML VIAL ONE (07:20)
[2020-05-15] MEDS ORDERED: XYLOCAINE 2%-EPI 1:100,000 20 ML VIAL ONE (07:33)
[2020-05-15] MEDS ORDERED: Bupivacaine PF 0.5% 30 ML VIAL ONE (07:33)
[2020-05-15] MEDS: metroNIDAZOLE 500 MG in Premix Bag 1 BAG IVPB SCH ×3 (07:50→22:47)
[2020-05-15] MEDS ORDERED: Morphine 2 MG/ML VIAL SLOW IVP PRN (08:57)
[2020-05-15] MEDS ORDERED: HYDROcodone/Acetaminophen 10/325 mg Tablet PO PRN ×2 (08:57)
[2020-05-15] MEDS ORDERED: Morphine 4 MG/ML VIAL SLOW IVP PRN (08:57)
[2020-05-15] MEDS ORDERED: Ketorolac Tromethamine 30 MG/ML VIAL ONE (09:16)
--- NOTE | 2020-05-15 09:23 | OP ---
DATE OF PROCEDURE: 05/15/2020 PREOPERATIVE DIAGNOSIS: Inflammatory mass of left breast, not responding to antibiotics. PROCEDURE PERFORMED: Incisional breast biopsy and drainage of small abscesses. INDICATIONS: This is a year-old female who over the last couple of weeks has been treated with antibiotics for cellulitis of the left breast after a dog bite. She had to come in for IV antibiotics, a little bit of improvement with the antibiotics. She does have a strong family history of breast cancer. FINDINGS: Basically a phlegmon with multiple small less than 5 mm abscesses scattered within this inflammatory tissue. The indurated area is 15 x 8 x 8 cm. A 4 x 4 x 3 cm piece of tissue removed including some skin for biopsy, cultures also obtained. DESCRIPTION OF PROCEDURE: After informed consent was obtained, patient was taken to the operating room and given general endotracheal anesthesia, placed in the supine position. Left breast was prepped and draped in usual fashion. Local anesthesia was infiltrated subcutaneously indeed, we tried aspirating the area with a large bore needle, we did not get any purulent fluid out. An elliptical incision was performed to excise some skin, then the breast tissue was very hard and woody, was incised with a 15 blade circumferentially and a core of breast tissue excised. During this portion, a small amount of purulent fluid was found, this was sent for culture. The specimen was marked with the skin anterior and a blue suture lateral, sent to Pathology for further analysis. Hemostasis achieved with electrocautery as well as a couple of [id number] of 3-0 Vicryl. The cavity was irrigated with saline and packed open with Betadine gauze. Sterile bandage applied. The patient tolerated the procedure well, transferred to Recovery in good condition. Sponge and needle count verified correct x2. Job ID: [id number]
[2020-05-15] MEDS ORDERED: Non-Formulary Medication 1 EACH PO PRN (09:33)
[2020-05-15] MEDS ORDERED: Promethazine HCl 25 MG/ML VIAL IM/IV PRN (09:45)
[2020-05-15] MEDS ORDERED: Ondansetron HCl/PF 4 MG/2 ML Vial IVP PRN (09:45)
[2020-05-15] MEDS ORDERED: Ketorolac Tromethamine 30 MG/ML VIAL IVP PRN (09:45)
[2020-05-15] MEDS: Clindamycin/D5W 900 MG in Premix Bag 1 BAG IVPB SCH ×2 (10:07→17:42)
--- NOTE | 2020-05-15 10:40 | PDOC.HOSPP ---
- Subjective Encounter Date: 05/15/20 Encounter Time: 10:38 Subjective: This patient is seen and evaluated. This 35-year-old female admitted with left breast cellulitis. She went to the OR this morning for I&D and biopsy. Her was at the bedside today when I visited. Per operative report she was noted to have some multiple pockets of abscesses that were drained. Biopsy also was obtained. We will add clindamycin. We will follow up on the culture reports. - Objective Vital Signs & Weight: Vital Signs (12 hours) Temp Pulse Resp BP BP Pulse Ox 05/15/20 09:51 94 L 05/15/20 09:50 97.6 F 67 16 102/67 94 L 05/15/20 07:30 98.2 F 75 16 117/76 96 05/15/20 04:00 99.1 F 76 18 112/71 98 05/15/20 00:00 98.6 F 65 18 113/73 95 Weight Weight 194 lb I&O: 05/14/20 05/15/20 05/16/20 06:59 06:59 06:59 Intake Total 2575 1720 Balance 2575 1720 Result Diagrams: 05/15/20 04:51 05/15/20 04:51 Radiology Reviewed by me: Yes EKG Reviewed by me: Yes Hospitalist ROS - Review of Systems ROS unobtainable: due to mental status Constitutional: reports: weakness, malaise Gastrointestinal: reports: nausea - Medication Medications: Active Medications Generic Name Dose Route Start Last Admin Trade Name Freq PRN Reason Stop Dose Admin Acetaminophen 650 mg 05/09/20 11:03 05/12/20 21:06 Acetaminophen 325 Mg Tab PO 650 mg Q4H PRN Administration Headache/Fever/Mild Pain (1-3) Metronidazole 500 mg/ Device 100 mls @ 100 mls/hr 05/13/20 14:00 05/15/20 07:50 IVPB 100 mls Q8HR DAVID Administration Clindamycin Phosphate/Dextrose 50 mls @ 100 mls/hr 05/15/20 10:00 05/15/20 10:07 900 mg/ Device IVPB 50 mls 0200,1000,1800 DAVID Administration Hospitalist Exam Vitals: Vital Signs (12 hours) Temp Pulse Resp BP BP Pulse Ox 05/15/20 09:51 94 L 05/15/20 09:50 97.6 F 67 16 102/67 94 L 05/15/20 07:30 98.2 F 75 16 117/76 96 05/15/20 04:00 99.1 F 76 18 112/71 98 05/15/20 00:00 98.6 F 65 18 113/73 95 Weight Weight 194 lb General Appearance: NAD, awake alert Eye: PERRL, anicteric sclera ENT: normocephalic atraumatic Heart: RRR Respiratory: CTAB Gastrointestinal: soft, non-tender, non-distended, normal bowel sounds Neurological: cranial nerve grossly intact, normal sensation to touch Psychiatric: normal affect, normal behavior, A&O x 3 Hosp A/P (1) Acute mastitis of left breast Code(s): N61.0 - MASTITIS WITHOUT ABSCESS Status: Acute (2) Cellulitis of left breast Code(s): N61.0 - MASTITIS WITHOUT ABSCESS Status: Acute (3) Dog scratch Code(s): W54.8XXA - OTHER CONTACT WITH DOG, INITIAL ENCOUNTER Status: Acute - Plan PT/OT She will continue antibiotics for now. 05/15/2020. The patient went to the OR today for I&D of her breast abscess. I will continue antibiotics and await culture data information.
[2020-05-15] MEDS ORDERED: Ondansetron PF 4 MG/2 ML Vial ONE (14:20)
[2020-05-15] MEDS ORDERED: PROPOFOL 200 MG/20 ML VIAL ONE (14:20)
[2020-05-15] MEDS ORDERED: Dexamethasone 20 MG/5 ML VIAL ONE (14:20)
[2020-05-15] MEDS ORDERED: Lidocaine 1% PF 5 ML VIAL ONE (14:20)
[2020-05-16] MEDS: Clindamycin/D5W 900 MG in Premix Bag 1 BAG IVPB SCH ×3 (01:06→17:33)
[2020-05-16] MEDS ORDERED: metroNIDAZOLE 500 MG/100 ML BAG ONE ×2 (05:35→15:27)
[2020-05-16] MEDS ORDERED: Clindamycin/D5W 900 mg/50 ml Premix Bag ONE (08:46)
[2020-05-16] MEDS: metroNIDAZOLE 500 MG in Premix Bag 1 BAG IVPB SCH ×3 (11:32→21:19)
[2020-05-16] MEDS ORDERED: Morphine 4 MG/ML VIAL ONE (12:16)
--- NOTE | 2020-05-16 12:37 | PDOC.HOSPP ---
- Subjective Encounter Date: 05/16/20 Encounter Time: 12:35 Subjective: She went to the OR for I and D of left breast cellulitis and abscess. Operative cultures are collected and are pending. She also had some biopsy of the breast done.Will continue antibiotics for now. Await cultures and biopsy. - Objective Vital Signs & Weight: Vital Signs (12 hours) Temp Pulse Resp BP Pulse Ox 05/16/20 07:48 97.9 F 53 L 18 126/85 100 Weight Weight 194 lb I&O: 05/15/20 05/16/20 05/17/20 06:59 06:59 06:59 Intake Total 1720 1040 Balance 1720 1040 Result Diagrams: 05/15/20 04:51 05/15/20 04:51 Radiology Reviewed by me: Yes EKG Reviewed by me: Yes Hospitalist ROS - Review of Systems Skin: reports: rash - Medication Medications: Active Medications Generic Name Dose Route Start Last Admin Trade Name Freq PRN Reason Stop Dose Admin Acetaminophen 650 mg 05/09/20 11:03 05/12/20 21:06 Acetaminophen 325 Mg Tab PO 650 mg Q4H PRN Administration Headache/Fever/Mild Pain (1-3) Metronidazole 500 mg/ Device 100 mls @ 100 mls/hr 05/13/20 14:00 05/16/20 11:32 IVPB Not Given Q8HR [facility] Clindamycin Phosphate/Dextrose 50 mls @ 100 mls/hr 05/15/20 10:00 05/16/20 10:44 900 mg/ Device IVPB 50 mls 0200,1000,1800 DAVID Administration Hospitalist Exam Vitals: Vital Signs (12 hours) Temp Pulse Resp BP Pulse Ox 05/16/20 07:48 97.9 F 53 L 18 126/85 100 Weight Weight 194 lb General Appearance: NAD, awake alert, ill appearing Eye: PERRL, anicteric sclera ENT: normocephalic atraumatic, no oropharyngeal lesions Neck: supple, symmetric, no JVD, no thyromegaly Heart: RRR, no murmur, no gallops, no rubs, normal peripheral pulses Respiratory: CTAB, no wheezes Gastrointestinal: soft, non-tender, non-distended, normal bowel sounds Neurological: cranial nerve grossly intact Psychiatric: normal affect Hosp A/P (1) Acute mastitis of left breast Code(s): N61.0 - MASTITIS WITHOUT ABSCESS Status: Acute (2) Cellulitis of left breast Code(s): N61.0 - MASTITIS WITHOUT ABSCESS Status: Acute (3) Dog scratch Code(s): W54.8XXA - OTHER CONTACT WITH DOG, INITIAL ENCOUNTER Status: Acute - Plan She will continue antibiotics for now. 05/15/2020. The patient went to the OR today for I&D of her breast abscess. I will continue antibiotics and await culture data information. 05/16/20 She will continue antibiotics for now. Await all cultures data info.
[2020-05-16 14:38] LABS: Anion Gap 14 mmol/L (10-20); BUN (Urea Nitrogen) 12 mg/dL (7.0-18.7); Calc. Creatinine Clearance 153 mL/min (70-130); Calcium 8.7 mg/dL (7.8-10.44); Carbon Dioxide 24 mmol/L (22-29); Chloride 105 mmol/L (98-107); Glucose 119 mg/dL (70-105); Potassium 3.7 mmol/L (3.5-5.1); Sodium 139 mmol/L (136-145)
[2020-05-16 17:40] LABS: Hemoglobin 12.2 g/dL (12.0-16.0); Mean Corpuscular HGB CONC 34.7 g/dL (32.0-36.0); Mean Corpuscular Hemoglobin 30.1 pg (27.0-31.0); Mean Corpuscular Volume 86.9 fL (78.0-98.0); Mean Platelet Volume 6.7 fL (7.4-10.4); Platelet Count 486 thou/uL (130-400); RBC Distribution Width 11.1 % (11.5-14.5); Red Blood Cell (RBC) Count 4.06 mill/uL (4.20-5.40); White Blood Cell (WBC) Count 23.3 thou/uL (4.8-10.8)
[2020-05-16 20:56] LABS: Band 7 % (5-11); Lymphocytes 9 % (21-51); MDiff Complete? YES; Monocytes 7 % (0-10); Neutrophil 76 % (42-75); Platelet Morphology Comment Appears Increased; Polychromasia SLIGHT = 2-3 cells (100X) (0-2/hpf); Reactive Lymphocytes 1 % (0-10)
[2020-05-17] MEDS: Clindamycin/D5W 900 MG in Premix Bag 1 BAG IVPB SCH ×3 (02:29→17:23)
[2020-05-17 05:20] LABS: #Basophils 0.1 thou/uL (0.0-0.2); #Eosinphils 0.1 thou/uL (0.0-0.7); #Lymphocytes 2.7 thou/uL (1.20-3.40); #Neutrophils 11.6 thou/uL (1.40-6.50); %Basophils 0.3 % (0.0-1.0); %Eosinophils 0.8 % (0.0-10.0); %Lymphocytes 17.7 % (21.0-51.0); %Monocytes 6.2 % (0.0-10.0); %Neutrophils 74.9 % (42.0-75.0); Hemoglobin 11.9 g/dL (12.0-16.0); Mean Corpuscular HGB CONC 33.1 g/dL (32.0-36.0); Mean Corpuscular Hemoglobin 28.5 pg (27.0-31.0); Mean Platelet Volume 6.6 fL (7.4-10.4); Platelet Count 424 thou/uL (130-400); RBC Distribution Width 11.3 % (11.5-14.5); Red Blood Cell (RBC) Count 4.16 mill/uL (4.20-5.40); White Blood Cell (WBC) Count 15.5 thou/uL (4.8-10.8)
[2020-05-17] MEDS: metroNIDAZOLE 500 MG in Premix Bag 1 BAG IVPB SCH ×3 (05:41→21:43)
--- NOTE | 2020-05-17 13:56 | PDOC.HOSPP ---
- Subjective Encounter Date: 05/17/20 Encounter Time: 13:55 Subjective: Patient was seen and evaluated. 35-year-old admitted with left breast abscess and cellulitis. She is status post I&D in the operating room. She also had biopsy and pathology report is still pending. She is on IV clindamycin and seems to be doing well. We will continue current care. - Objective Vital Signs & Weight: Vital Signs (12 hours) Temp Pulse Resp BP Pulse Ox 05/17/20 07:36 98.3 F 72 18 117/78 97 Weight Admit Weight 194 lb Weight 194 lb I&O: 05/16/20 05/17/20 05/18/20 06:59 06:59 06:59 Intake Total 1040 Balance 1040 Result Diagrams: 05/17/20 04:55 05/16/20 03:30 Radiology Reviewed by me: Yes EKG Reviewed by me: Yes Hospitalist ROS - Review of Systems Constitutional: reports: weakness, malaise Gastrointestinal: reports: nausea Skin: reports: rash - Medication Medications: Active Medications Generic Name Dose Route Start Last Admin Trade Name Freq PRN Reason Stop Dose Admin Acetaminophen 650 mg 05/09/20 11:03 05/12/20 21:06 Acetaminophen 325 Mg Tab PO 650 mg Q4H PRN Administration Headache/Fever/Mild Pain (1-3) Metronidazole 500 mg/ Device 100 mls @ 100 mls/hr 05/13/20 14:00 05/17/20 05:41 IVPB 100 mls Q8HR DAVID Administration Clindamycin Phosphate/Dextrose 50 mls @ 100 mls/hr 05/15/20 10:00 05/17/20 09:21 900 mg/ Device IVPB 50 mls 0200,1000,1800 DAVID Administration Hospitalist Exam Vitals: Vital Signs (12 hours) Temp Pulse Resp BP Pulse Ox 05/17/20 07:36 98.3 F 72 18 117/78 97 Weight Admit Weight 194 lb Weight 194 lb General Appearance: NAD, awake alert Eye: PERRL, anicteric sclera ENT: normocephalic atraumatic, no oropharyngeal lesions Neck: supple, symmetric, no JVD Heart: RRR, no murmur, no gallops, no rubs Respiratory: CTAB, no wheezes, no rales, no ronchi Gastrointestinal: soft, non-tender, non-distended, normal bowel sounds Neurological: cranial nerve grossly intact, normal sensation to touch Psychiatric: normal affect, normal behavior, A&O x 3 Hosp A/P (1) Acute mastitis of left breast Code(s): N61.0 - MASTITIS WITHOUT ABSCESS Status: Acute (2) Cellulitis of left breast Code(s): N61.0 - MASTITIS WITHOUT ABSCESS Status: Acute (3) Dog scratch Code(s): W54.8XXA - OTHER CONTACT WITH DOG, INITIAL ENCOUNTER Status: Acute - Plan old records reviewed/req, continue antibiotics, PT/OT She will continue antibiotics for now. 05/15/2020. The patient went to the OR today for I&D of her breast abscess. I will continue antibiotics and await culture data information. 05/16/20 She will continue antibiotics for now. Await all cultures data info. 05/17/2020. Cultures remains negative to date. Pathology report is still pending. I am going to continue antibiotics. Continue wound care dressing changes.
[2020-05-17 20:32] VITALS: BP 119/84; TEMP 98.2
[2020-05-18] MEDS: Clindamycin/D5W 900 MG in Premix Bag 1 BAG IVPB SCH ×2 (02:51→10:35)
[2020-05-18] MEDS: metroNIDAZOLE 500 MG in Premix Bag 1 BAG IVPB SCH (05:41)
--- NOTE | 2020-05-18 18:22 | PDOC.DS.DS ---
Provider Date of Admission: 05/09/20 11:02 Date of Discharge: 05/18/20 Admitting Provider: Collins Jacobo MD Consultations: General Surgery Primary Care Physician: KRISTINE PCP PROVIDER Course Hospital Course: This is a 35-year-old woman who presented to the hospital with redness and pain involving her left breast. She apparently suffered dog scratch on the left breast from her pet dog. This reportedly got inflamed and infected prompting her to present to the emergency room. She was evaluated and sent home on oral antibiotics. However she was feeling poorly and decided to present back to the hospital. She was placed on antibiotics. General surgery evaluation was obtained and the patient was taken to the OR where she underwent extensive I&D of pockets of abscesses. A biopsy was also taken which was sent for pathology. The patient tolerated procedure well without any issues. She will complete 10 more days of oral antibiotics as outpatient. She will continue dressing changes as instructed. She will follow up with general surgery Dr. John Paul Franklin as outpatient within the next 14 days. She is discharged today in a stable condition. Resuscitation Status: 05/09/20 11:03 Resuscitation Status Routine Co-Sign Provider: Resuscitation Status: FULL: Full Resuscitation Lab Results: 05/17/20 04:55 05/16/20 03:30 Abnormal Lab Results - Last 48 hrs 05/16/20 05:46: Neutrophils % (Manual) 76 H, Lymphocytes % (Manual) 9 L, Plt Morphology Comment Appears Increased H 05/17/20 04:55: WBC 15.5 H, RBC 4.16 L, Hgb 11.9 L, Hct 35.8 L, RDW 11.3 L, Plt Count 424 H, MPV 6.6 L, Lymphocytes % 17.7 L, Neutrophils # 11.6 H, Monocytes # 1.0 H Microbiology - Entire Visit 05/15/20 08:35 Breast - Swab Bacterial Culture - Preliminary 05/15/20 08:35 Breast - Swab Anaerobic Culture - Preliminary NO ANAEROBES ISOLATED IN 3 DAYS 05/09/20 08:59 Venous blood - Right Arm Blood Culture - Final NO GROWTH IN 5 DAYS 05/09/20 09:09 Venous blood - Left Arm Blood Culture - Final NO GROWTH IN 5 DAYS Vitals: Weight Admit Weight 194 lb Weight 194 lb Physical Exam: The patient was seen and examined on the day of discharge. General Appearance: NAD, awake alert Eye: PERRL, anicteric sclera ENT: normocephalic atraumatic, no oropharyngeal lesions Neck: supple, symmetric, no JVD, no thyromegaly Respiratory: CTAB, no wheezes, no rales, no ronchi, normal chest expansion Cardiovascular: RRR, no murmur, no gallops, no rubs, normal peripheral pulses Gastrointestinal: soft, non-tender, non-distended, normal bowel sounds Neurological: cranial nerve grossly intact, normal sensation to touch PSYCH: normal affect, normal behavior Problem (1) Acute mastitis of left breast Code(s): N61.0 - MASTITIS WITHOUT ABSCESS Status: Acute (2) Cellulitis of left breast Code(s): N61.0 - MASTITIS WITHOUT ABSCESS Status: Acute (3) Dog scratch Code(s): W54.8XXA - OTHER CONTACT WITH DOG, INITIAL ENCOUNTER Status: Acute Time Spent in discharge related activities (mins): 30 Plan Prescriptions: Lactobacillus Acidophilus [Acidophilus Lactobacilli] 2 each PO Q6HR #30 capsule Clindamycin HCl 300 mg PO Q6HR #28 capsule Home Medications: Medication Instructions Recorded Confirmed Type Clindamycin HCl 300 mg PO Q6HR #28 capsule 05/18/20 Rx Lactobacillus Acidophilus 2 each PO Q6HR #30 capsule 05/18/20 Rx [Acidophilus Lactobacilli] Allergies: vancomycin Allergy (Mild, Verified 05/09/20 13:25) itchy. Discharge Instructions:: Cleanse left breast with Normal saline, then apply a dampened NS, wet to dry gauze and cover with dry dressing Activity:: Activity as Tolerated IV Therapy:: Not Applicable Referrals: John Paul Franklin Jr, MD [Active] - (as discussed) PROVIDER,NO PCP [Primary Care Provider] - (follow up in 1 week) Disposition: HOME Quality CORE MEASURES:: N/A
[2020-05-25 09:17] LABS: Fungus Stain Final report (.)
== END 2020-05-18 16:55 | disposition home or self-care (01) | DRG 855 ==
LOC: ERS 08:15 → T4-B 11:02
PROVIDERS: ADMIT Internal Medicine; ATTEND Hospitalist
PROC: 0HBU0ZX Excision of Left Breast, Open Approach, Diagnostic (ICD-10-PCS; principal; 2020-05-15)
PROC: 0H9U0ZZ Drainage of Left Breast, Open Approach (ICD-10-PCS; 2020-05-15)
DX: A41.9 Sepsis, unspecified organism (principal); N61.1 Abscess of the breast and nipple; Z20.822 Contact with and (suspected) exposure to COVID-19; E66.9 Obesity, unspecified; Z68.34 Body mass index [BMI] 34.0-34.9, adult; W54.8XXA Other contact with dog, initial encounter; N61.0 Mastitis without abscess
CPT/HCPCS: 36415; 80048; 80053; 83605; 84703; 85025; 87040; 87070; 87102; 87205; 87206; 87635; 88305; 96365; 96366; 96375; J0295; J0696; J1100; J1200; J1650; J1885; J2270; J2405; J2704; J3010; J3370; J3490; S0020; U0003; U0005

== ENCOUNTER 2020-06-16 13:08 | Outpatient (CLI) | payer OTHER | END 2020-06-16 13:09 | disposition home or self-care (01) | LOC: BICMAMMO 13:08 | PROVIDERS: ATTEND Surgery | DX: N61.0 Mastitis without abscess (principal) | CPT/HCPCS: 77066; G0279 ==

== ENCOUNTER 2020-06-17 14:24 | Outpatient (CLI) | payer OTHER, SELFPAY ==
[2020-06-17 18:46] LABS: #Basophils 0.1 10x3/uL (0.0-0.2); #Eosinphils 0.1 10x3/uL (0.0-0.5); #Monocytes 0.9 10x3/uL (0.0-1.1); #Neutrophils 10.9 10x3/uL (1.5-8.4); %Basophils 0.5 % (0.0-2.0); %Eosinophils 0.6 % (0.0-6.0); %Lymphocytes 13.4 % (18.0-47.0); %Monocytes 6.1 % (0.0-10.0); %Neutrophils 78.2 % (40.0-75.0); Hemoglobin 12.5 g/dL (12.0-15.5); Mean Corpuscular HGB CONC 32.8 g/dL (32.0-36.0); Mean Corpuscular Hemoglobin 26.9 pg (27.0-33.0); Mean Corpuscular Volume 82.1 fl (81.6-98.3); Mean Platelet Volume 9.7 fl (7.4-10.4); Platelet Count 466 10x3/uL (150-450); RBC Distribution Width 12.5 % (11.5-14.5); Red Blood Cell (RBC) Count 4.64 10x6/uL (3.90-5.03); White Blood Cell (WBC) Count 13.9 10x3/uL (3.5-10.5)
[2020-06-17 19:27] LABS: BHCG - Serum Negative (NEGATIVE); Pregs Control Background? CLEAR/WHITE (CLR/WHITE); Pregs Control Bar Appear? YES (CONTROL BAR)
[2020-06-18 03:55] LABS: SARS-CoV-2 PCR by NAA Not Detected (NotDetected)
== END 2020-06-17 14:25 | disposition home or self-care (01) ==
LOC: LABBT 14:24
PROVIDERS: ATTEND Surgery
DX: N63.20 Unspecified lump in the left breast, unspecified quadrant (principal); Z20.822 Contact with and (suspected) exposure to COVID-19
CPT/HCPCS: 84703; 85025; 87635; U0003; U0005

== ENCOUNTER 2020-06-21 10:04 | Inpatient (IN) | payer SELFPAY ==
[2020-06-21] MEDS ORDERED: Fentanyl 100 MCG/2 ML VIAL ONE ×2 (11:27→12:01)
[2020-06-21] MEDS ORDERED: PROPOFOL 200 MG/20 ML VIAL ONE (11:31)
[2020-06-21] MEDS ORDERED: Ondansetron PF 4 MG/2 ML Vial ONE (11:31)
[2020-06-21] MEDS ORDERED: diphenhydrAMINE 50 MG/ML VIAL ONE (11:31)
[2020-06-21] MEDS ORDERED: Metoclopramide HCl 10 MG/2 ML VIAL ONE (11:31)
[2020-06-21] MEDS ORDERED: Dexamethasone 20 MG/5 ML VIAL ONE (11:31)
[2020-06-21] MEDS ORDERED: Lidocaine 1% PF 5 ML VIAL ONE (11:31)
[2020-06-21] MEDS ORDERED: Midazolam HCl 2 mg/2 ml Vial ONE (11:34)
[2020-06-21] MEDS ORDERED: Meperidine HCl/PF 25 MG/ML VIAL SLOW IVP PRN (12:18)
[2020-06-21] MEDS ORDERED: HYDROmorphone 2 MG/ML VIAL SLOW IVP PRN (12:18)
[2020-06-21] MEDS ORDERED: Promethazine HCl 25 MG/ML VIAL IM PRN ×2 (12:18→12:36)
[2020-06-21] MEDS ORDERED: Promethazine HCl 25 MG/ML VIAL SLOW IVP PRN (12:18)
[2020-06-21] MEDS ORDERED: Morphine 2 MG/ML VIAL SLOW IVP PRN (12:36)
[2020-06-21] MEDS ORDERED: Dextrose 50% Abboject 50 ML SYRINGE SLOW IVP PRN (12:36)
[2020-06-21] MEDS ORDERED: Dextrose 5% in Water 1,000 ML IV PRN (12:36)
[2020-06-21] MEDS ORDERED: Ondansetron PF 4 MG/2 ML Vial IVP PRN (12:36)
[2020-06-21] MEDS ORDERED: hydrALAZINE 20 MG/ML VIAL SLOW IVP PRN (12:36)
[2020-06-21] MEDS ORDERED: Morphine 4 MG/ML VIAL SLOW IVP PRN (12:36)
[2020-06-21] MEDS ORDERED: HYDROcodone/Acetaminophen 10/325 mg Tablet PO PRN ×2 (12:36)
[2020-06-21] MEDS ORDERED: HYDROmorphone 0.5 MG/0.5 ML SYRINGE ONE (12:58)
[2020-06-21 15:36] VITALS: BMI 34.4
[2020-06-21] MEDS: Piperacillin/Tazobactam 3.375 GM in Sodium Chloride 0.9% 100 ML IVPB SCH ×2 (16:07→20:40)
[2020-06-21] MEDS: Sodium Chloride 0.9% 1,000 ML IV SCH (16:07)
[2020-06-21] MEDS: Ketorolac Tromethamine 30 MG/ML VIAL IVP SCH ×2 (17:26→23:44)
[2020-06-21] MEDS: Famotidine 20 MG TAB PO SCH (20:40)
[2020-06-21] MEDS: Famotidine/PF 20 mg/2ml Vial SLOW IVP SCH (20:44)
[2020-06-22] MEDS: Sodium Chloride 0.9% 1,000 ML IV SCH ×4 (01:50→16:25)
[2020-06-22] MEDS: Piperacillin/Tazobactam 3.375 GM in Sodium Chloride 0.9% 100 ML IVPB SCH ×3 (01:51→13:50)
[2020-06-22] MEDS: Ketorolac Tromethamine 30 MG/ML VIAL IVP SCH ×3 (06:30→16:25)
[2020-06-22 07:25] LABS: Anion Gap 12 mmol/L (10-20); BUN (Urea Nitrogen) 9 mg/dL (7.0-18.7); Calc. Creatinine Clearance 142 mL/min (70-130); Calcium 8.2 mg/dL (7.8-10.44); Carbon Dioxide 22 mmol/L (22-29); Chloride 109 mmol/L (98-107); Glucose 131 mg/dL (70-105); Mean Corpuscular HGB CONC 33.6 g/dL (32.0-36.0); Mean Corpuscular Hemoglobin 28.1 pg (27.0-31.0); Mean Corpuscular Volume 83.6 fL (78.0-98.0); Platelet Count 370 thou/uL (130-400); Potassium 3.9 mmol/L (3.5-5.1); RBC Distribution Width 11.8 % (11.5-14.5); Sodium 139 mmol/L (136-145); White Blood Cell (WBC) Count 17.8 thou/uL (4.8-10.8)
[2020-06-22] MEDS: Famotidine 20 MG TAB PO SCH (07:49)
[2020-06-22] MEDS: Famotidine/PF 20 mg/2ml Vial SLOW IVP SCH (07:49)
[2020-06-22] MEDS ORDERED: Enoxaparin Sodium 40 MG/0.4 ML SYRINGE SC SCH (09:00)
[2020-06-22 10:21] LABS: Band 5 % (5-11); Lymphocytes 4 % (21-51); MDiff Complete? YES; Monocytes 6 % (0-10); Neutrophil 85 % (42-75); Platelet Morphology Comment Appears Adequate; Polychromasia SLIGHT = 2-3 cells (100X) (0-2/hpf)
[2020-06-22 16:00] VITALS: BP 113/72; TEMP 97.9
== END 2020-06-22 17:00 | disposition home or self-care (01) | DRG 585 ==
LOC: SDC 10:04 → T4-A 14:14
PROVIDERS: ADMIT Surgery; ATTEND Surgery
PROC: 0HBU0ZZ Excision of Left Breast, Open Approach (ICD-10-PCS; principal; 2020-06-21)
DX: N61.1 Abscess of the breast and nipple (principal); Z20.822 Contact with and (suspected) exposure to COVID-19; N64.1 Fat necrosis of breast; Z88.1 Allergy status to other antibiotic agents
CPT/HCPCS: 36415; 36416; 80048; 85025; 87070; 87205; 88304; J0690; J1100; J1170; J1200; J1885; J2250; J2405; J2543; J2704; J2765; J3010; J3490

== ENCOUNTER 2020-08-11 14:32 | Outpatient (CLI) | payer OTHER | END 2020-08-11 14:33 | disposition home or self-care (01) | LOC: BICULT 14:32 | PROVIDERS: ATTEND Surgery | DX: N61.0 Mastitis without abscess (principal) ==